=== PATIENT | female | born 1965 | race Caucasian/White ===

== ENCOUNTER 2024-03-29 17:24 | Observation (INO) | payer OTHER, MEDICAID, SELFPAY ==
[2024-03-29] VITALS (14 sets, daily range): BP systolic 103–146; BP diastolic 60–78; PULSE 91–108; RESP 16–24; TEMP 36.6; O2SAT 92–99; BMI 20.7
--- NOTE | 2024-03-29 17:39 | DI.RAD.S_ITS ---
PROCEDURE: XR CHEST 1V INDICATIONS: Shortness of breath TECHNIQUE: One view of the chest was acquired. COMPARISON: None. FINDINGS: Surgical changes and devices: None. Lungs and pleura: Lungs are clear. No pleural effusions or pneumothorax. Mediastinum: Mediastinal contours appear normal. Heart size is normal. Bones and chest wall: No suspicious bony lesions. Overlying soft tissues appear unremarkable. Bones are osteopenic. IMPRESSION: No acute cardiopulmonary abnormality is seen. Approved by: Jaime Cadena M.D. on 03/29/2024 at 18:48
--- NOTE | 2024-03-29 17:43 | EKG_ITS ---
[facility] [address] [place] [address] Test Date: 2024-03-29 Pat Name: Sue Roy Department: [facility] Room: Gender: Female [employer]: : 1965 Requested By: Order Number: [id number] Reading MD: Rafa Hankins Measurements Intervals [place] Rate: 105 P: 83 AR: 130 QRS: 52 QRSD: 72 T: -41 QT: 348 QTc: 459 Interpretive Statements Sinus tachycardia with premature supraventricular complexes Nonspecific ST and T wave abnormality Electronically Signed On 03-30-2024 13:15:40 PDT by Rafa Hankins
[2024-03-29 17:55] LABS: Add Manual Diff / Slide Review NO; Basophils Absolute Auto 100 /uL (0-100); Eosinophils Absolute Auto 100 /uL (0-450); Eosinophils Percent Auto 0.9 % (2-4); Hemoglobin 9.4 g/dL (12.0-16.0); Lymphocytes Absolute Auto 1800 /uL (1100-4500); Lymphocytes Percent Auto 22.4 % (25-40); Mean Corpuscular HGB Conc 32.3 % (30-36); Mean Corpuscular Hemoglobin 36.1 PG (26-34); Mean Corpuscular Volume 111.6 fL (80-100); Monocytes Absolute Auto 600 /uL (0-900); Monocytes Percent Auto 7.4 % (3-14); Neutrophils Absolute Auto 5400 /uL (1500-7000); Neutrophils Percent Auto 68.3 % (50-75); Platelet Count 417 X10^3/uL (150-400); Red Cell Distribution Width 16.3 % (11.6-14.8); White Blood Cell Count 7.9 X10^3/uL (4.5-11.0)
[2024-03-29 17:57] LABS: INR 1.1 (0.9-1.3); Prothrombin Time 12.7 SECONDS (9.4-12.5)
[2024-03-29 18:03] LABS: Alanine Aminotransferase 32 IU/L (<35); Albumin 2.8 g/dL (3.5-5.0); Albumin Globulin Ratio 1.1 (1.0-2.8); Alkaline Phosphatase 222 U/L (38-126); Aspartate Aminotransferase 133 IU/L (14-36); BUN Creatinine Ratio 13.3 (6-22); Bilirubin Total 0.7 mg/dL (0.2-1.3); Blood Urea Nitrogen 6 mg/dL (7-17); Calcium 8.5 mg/dL (8.4-10.2); Carbon Dioxide 19 mmol/L (22-32); Chloride 105 mmol/L (98-107); Estimated Glomerular Filt Rate > 60 mL/min (>60); Globulin 2.6 g/dL (1.7-4.1); Glucose 99 mg/dL (70-100); HEMOLYSIS < 15 (0-50); Sodium 133 mmol/L (137-145); Total Protein 5.4 g/dL (6.3-8.2)
[2024-03-29 18:08] LABS: Macrocytosis 1+
[2024-03-29 18:16] LABS: NT-proBNP (BNP-Adult 18+) 270 pg/mL (<125); Troponin I < 0.012 ng/mL (0.01-0.034)
[2024-03-29] MEDS: ALBUTEROL/IPRATROPIUM 3 ML AMPUL INH (18:31)
[2024-03-29 19:37] LABS: Lactate (Lactic Acid) 3.2 mmol/L (0.7-2.1)
[2024-03-29 20:57] LABS: Reflexed Lactate in 2 Hours Y
--- NOTE | 2024-03-29 21:05 | ED.GENADULT ---
HPI - General Adult General Chief complaint: Shortness of Breath/Dyspnea Stated complaint: dizzy, short of breath, hard time walking Time Seen by Provider: 03/29/24 18:01 Source: patient Mode of arrival: Ambulatory History of Present Illness HPI narrative: 58-year-old woman with a history of alcohol use disorder presents today complaining of shortness of breath, dizziness, increasing abdominal pain and swelling states she is gained 12 lb recently. Patient was seen at [facility] emergency department on March 19 after fall down 4 stairs related to her alcohol use. Imaging of the head and C-spine at that time were unremarkable. She did have a scalp laceration that was repaired. Blood work was not done at that time. Patient states that she has finally been able to schedule an appointment with the primary care physician on April 11. She has not seen a primary care physician over the last number of years. She states that she does smoke tobacco, does drink alcohol does not have withdrawal symptoms and has never had withdrawal seizures. Over the last 2-3 weeks due to having increasing abdominal distention and tenderness, left flank pain and lower extremity edema. She has not complaining of fever, cough, chills, vomiting. Has not noticed black or bloody stools Related Data Allergies Allergy/AdvReac Type Severity Reaction Status Date / Time No Known Drug Allergies Allergy Verified 03/29/24 18:35 Review of Systems Review of Systems Narrative: Pertinent positive and negative findings as per HPI Patient History Social History Smoking Status: Current every day smoker Smoking Status: Current every day smoker alcohol intake frequency: 3 or more drinks per day Substance Use Type: does not use Exam Initial Vital Signs Initial Vital Signs: Vital Signs Pulse Rate 104 H 03/29/24 17:32 Blood Pressure 133/72 03/29/24 17:32 General: Frail, chronically ill-appearing in moderate pain able to speak in complete sentences HEENT: Moist mucous membranes, normal sclera with reactive pupils, Neck: No JVD, supple Respiratory: Lungs with scattered wheeze in all lung field no rhonchi. Cardiac: Tachycardic but otherwise Regular rate and rhythm no murmurs no bruits Abdomen: Distended, positive fluid shift, left flank pain. No abrasions or contusions appreciated. Skin: Thin, multiple telangiectasias with palmar erythema Neurologic: Globally weak but otherwise Grossly neurologically intact with no obvious asymmetries or abnormalities Extremities: No trauma, 2+ lower extremity edema extending up to the lower abdomen Psych: Cooperative, appropriate insight and affect Course Orders Ordered: ED Orders 03/29/24 17:37 Complete Blood Count AUTO DIFF Stat Comprehensive Metabolic Panel Stat NT-proBNP (BNP-Adult 18+) Stat Prothrombin Time INR Stat Troponin I Stat 03/29/24 17:39 XR chest 1V Stat EKG-12 Lead Stat Measure peak expiratory flow ONCE RT Consult Eval and Treat NOW 03/29/24 19:15 Lactate (Lactic Acid) Stat 03/29/24 21:18 CT abdomen pelvis w con Stat CT head/brain wo con Stat 03/29/24 21:46 ETOH [Ethanol (ETOH)] Stat Magnesium Stat Procalcitonin Stat 03/29/24 23:00 Urinalysis and Microscopic Stat Urine Culture Stat Hydromorphone HCl (Hydromorphone 0.5 Mg Inj) 0.5 mg IV Q15MIN PRN PRN Reason: Pain, Last Admin: 03/29/24 21:26 Dose: 0.5 mg Documented By: SEVERIANO Discontinued Medications Albuterol/Ipratropium (Albuterol/Ipratropium 3 Ml Ampul) 3 ml INH NOW ONE Stop: 03/29/24 18:30 Last Admin: 03/29/24 18:31 Dose: 3 ml Documented By: ZARA Sodium Chloride (Normal Saline 0.9%) 1,000 mls @ 1,000 mls/hr IV BOLUS ONE Stop: 03/29/24 22:15 Last Infusion: 03/29/24 22:51 Dose: Infused Documented By: Admin: 03/29/24 21:29 Dose: 1,000 mls/hr Documented By: SEVERIANO Thiamine HCl 100 mg/ Sodium (Chloride) 101 mls @ 404 mls/hr IV NOW ONE Stop: 03/29/24 21:17 Last Infusion: 03/29/24 22:08 Dose: Infused Documented By: Infusion: 03/29/24 21:45 Dose: 404 mls/hr Documented By: Infusion: 03/29/24 21:30 Dose: 0 mls/hr Documented By: Admin: 03/29/24 21:29 Dose: 404 mls/hr Documented By: SEVERIANO Vital Signs Vital signs: Vital Signs - 8 hr 03/29/24 17:32 03/29/24 17:32 03/29/24 17:44 Temperature 97.9 F Pulse Rate 104 H 103 H Respiratory Rate 18 Blood Pressure 133/72 133/72 Pulse Oximetry 99 Oxygen Delivery Method Room Air 03/29/24 18:00 03/29/24 18:00 03/29/24 18:30 Temperature Pulse Rate 97 H Respiratory Rate 20 Blood Pressure 112/72 127/78 Pulse Oximetry 98 Oxygen Delivery Method 03/29/24 18:30 03/29/24 19:00 03/29/24 19:00 Temperature Pulse Rate 96 H 108 H Respiratory Rate 17 24 Blood Pressure 125/65 Pulse Oximetry 97 95 Oxygen Delivery Method Room Air 03/29/24 19:30 03/29/24 19:30 03/29/24 20:00 Temperature Pulse Rate 99 H Respiratory Rate 21 Blood Pressure 123/72 122/75 Pulse Oximetry 95 Oxygen Delivery Method 03/29/24 20:00 03/29/24 20:30 03/29/24 20:30 Temperature Pulse Rate 100 H 92 H Respiratory Rate 21 23 Blood Pressure 122/74 Pulse Oximetry 95 95 Oxygen Delivery Method 03/29/24 21:00 03/29/24 21:00 03/29/24 21:42 Temperature Pulse Rate 100 H Respiratory Rate 21 Blood Pressure 103/60 129/66 Pulse Oximetry 95 Oxygen Delivery Method Room Air 03/29/24 21:42 03/29/24 22:00 03/29/24 22:00 Temperature Pulse Rate 102 H 99 H Respiratory Rate 16 19 Blood Pressure 146/61 H Pulse Oximetry 97 97 Oxygen Delivery Method Room Air 03/29/24 22:30 03/29/24 22:30 03/29/24 23:08 Temperature Pulse Rate 94 H Respiratory Rate 18 Blood Pressure 118/68 115/69 Pulse Oximetry 96 Oxygen Delivery Method Room Air 03/29/24 23:08 Temperature Pulse Rate 98 H Respiratory Rate 22 Blood Pressure Pulse Oximetry 95 Oxygen Delivery Method Medical Decision Making Lab Data 03/29/24 17:37 03/29/24 17:37 Labs: Lab Results 03/29/24 03/29/24 03/29/24 Range/Units 17:37 19:15 21:46 WBC 7.9 (4.5-11.0) X10^3/uL RBC 2.60 L (4.0-5.2) X10^6/uL Hgb 9.4 L (12.0-16.0) g/dL Hct 29.0 L (36-46) % MCV 111.6 H (80-100) fL MCH 36.1 H (26-34) PG MCHC 32.3 (30-36) % RDW 16.3 H (11.6-14.8) % Plt Count 417 H (150-400) X10^3/uL Neut % (Auto) 68.3 (50-75) % Lymph % (Auto) 22.4 L (25-40) % [place] % (Auto) 7.4 (3-14) % Eos % (Auto) 0.9 L (2-4) % Baso % (Auto) 1.0 (0-2) % Neut # (Auto) 5400 (3409-2393) /uL Lymph # (Auto) 1800 (5864-5750) /uL [place] # (Auto) 600 (0-900) /uL Eos # (Auto) 100 (0-450) /uL Baso # (Auto) 100 (0-100) /uL RBC Morphology See below Macrocytosis 1+ H PT 12.7 H (9.4-12.5) SECONDS INR 1.1 (0.9-1.3) Sodium 133 L (137-145) mmol/L Potassium 3.0 L (3.4-5.1) mmol/L Chloride 105 (98-107) mmol/L Carbon Dioxide 19 L (22-32) mmol/L BUN 6 L (7-17) mg/dL Creatinine 0.45 L (0.52-1.04) mg/dL Estimated GFR > 60 (>60) mL/min BUN/Creatinine Ratio 13.3 (6-22) Glucose 99 (70-100) mg/dL Lactate 3.2 H 3.3 H (0.7-2.1) mmol/L Calcium 8.5 (8.4-10.2) mg/dL Magnesium 1.5 L (1.6-2.3) mg/dL Total Bilirubin 0.7 (0.2-1.3) mg/dL AST 133 H (14-36) IU/L ALT 32 (<35) IU/L Alkaline Phosphatase 222 H (38-126) U/L Troponin I < 0.012 (0.01-0.034) ng/mL NT-Pro-B Natriuret Pep 270 H (<125) pg/mL Total Protein 5.4 L (6.3-8.2) g/dL Albumin 2.8 L (3.5-5.0) g/dL Globulin 2.6 (1.7-4.1) g/dL Albumin/Globulin Ratio 1.1 (1.0-2.8) Procalcitonin 0.266 (<0.5) ng/mL Urine Color Urine Appearance Urine pH (4.5-8.0) Ur Specific [place] (1.000-1.035) Urine Protein (Negative) Urine Glucose (UA) (Negative) g/dL Urine Ketones (NEGATIVE) Urine Occult Blood (Negative) Urine Nitrate (Negative) Urine Bilirubin (NEGATIVE) Urine Urobilinogen (0.2) E.U./dL Ur Leukocyte Esterase (NEGATIVE) Urine RBC (0-5/HPF) Urine WBC (0-5/HPF) Ur Squamous Epith Cells (0-5/HPF) Urine Bacteria (None) Ur Culture Indicated? Vol Urine Centrifuged Ethyl Alcohol 25 H ( - 10) mg/dL 03/29/24 Range/Units 23:00 WBC (4.5-11.0) X10^3/uL RBC (4.0-5.2) X10^6/uL Hgb (12.0-16.0) g/dL Hct (36-46) % MCV (80-100) fL MCH (26-34) PG MCHC (30-36) % RDW (11.6-14.8) % Plt Count (150-400) X10^3/uL Neut % (Auto) (50-75) % Lymph % (Auto) (25-40) % [place] % (Auto) (3-14) % Eos % (Auto) (2-4) % Baso % (Auto) (0-2) % Neut # (Auto) (7058-3437) /uL Lymph # (Auto) (9903-5363) /uL [place] # (Auto) (0-900) /uL Eos # (Auto) (0-450) /uL Baso # (Auto) (0-100) /uL RBC Morphology Macrocytosis PT (9.4-12.5) SECONDS INR (0.9-1.3) Sodium (137-145) mmol/L Potassium (3.4-5.1) mmol/L Chloride (98-107) mmol/L Carbon Dioxide (22-32) mmol/L BUN (7-17) mg/dL Creatinine (0.52-1.04) mg/dL Estimated GFR (>60) mL/min BUN/Creatinine Ratio (6-22) Glucose (70-100) mg/dL Lactate (0.7-2.1) mmol/L Calcium (8.4-10.2) mg/dL Magnesium (1.6-2.3) mg/dL Total Bilirubin (0.2-1.3) mg/dL AST (14-36) IU/L ALT (<35) IU/L Alkaline Phosphatase (38-126) U/L Troponin I (0.01-0.034) ng/mL NT-Pro-B Natriuret Pep (<125) pg/mL Total Protein (6.3-8.2) g/dL Albumin (3.5-5.0) g/dL Globulin (1.7-4.1) g/dL Albumin/Globulin Ratio (1.0-2.8) Procalcitonin (<0.5) ng/mL Urine Color Yellow Urine Appearance Cloudy Urine pH 7.0 (4.5-8.0) Ur Specific [place] 1.010 (1.000-1.035) Urine Protein Trace H (Negative) Urine Glucose (UA) Negative (Negative) g/dL Urine Ketones Negative (NEGATIVE) Urine Occult Blood Negative (Negative) Urine Nitrate Negative (Negative) Urine Bilirubin Negative (NEGATIVE) Urine Urobilinogen 4.0 H (0.2) E.U./dL Ur Leukocyte Esterase 1+ H (NEGATIVE) Urine RBC None seen (0-5/HPF) Urine WBC 5-10/hpf H (0-5/HPF) Ur Squamous Epith Cells 1-5 /hpf (0-5/HPF) Urine Bacteria Many (>30) H (None) Ur Culture Indicated? Specimen cultured Vol Urine Centrifuged 10ml (spun) Ethyl Alcohol ( - 10) mg/dL Imaging Data CT scan - abdomen/pelvis: Radiologist's Impression: PROCEDURE: CT ABDOMEN PELVIS W CON INDICATIONS: anasarca, Left flank pain TECHNIQUE: After the administration of intravenous contrast, axial sections acquired from the lung bases to the pubic symphysis. Coronal and sagittal reformats were performed. For radiation dose reduction, the following was used: automated exposure control, adjustment of mA and/or kV according to patient size. COMPARISON: None. FINDINGS: Image quality: Diagnostic Lower chest: Small right pleural effusion. Subjacent atelectasis. Other areas of atelectasis/scarring also present. Mild distal esophageal wall thickening, nonspecific. Coronary calcifications. This appears premature for age. Liver: Hepatic steatosis. Borderline hepatomegaly at 19 cm Subcentimeter lesions are too small to characterize, usually cysts Gallbladder and biliary system: Mildly distended gallbladder without radiopaque gallstones. Borderline ectatic CBD at 6 to 7 mm Pancreas: No ductal dilation Spleen: Nonenlarged Adrenals: No discrete nodule Kidneys: No solid mass or hydronephrosis Vessels and lymph nodes: The main portal vein appears patent. No abdominal aortic aneurysm. There are atherosclerotic calcifications. No pathologic lymph nodes by size criteria Bowel and peritoneum: No evidence of small bowel obstruction. Moderate ascites is present. Colonic diverticula. Nondilated appendix. Body wall: Moderate diffuse anasarca Pelvis: There are pelvic clips. The uterus is absent. Bladder is unremarkable on limited CT evaluation Bones: Mild degenerative changes. No acute or suspicious osseous finding. Nonacute appearing right rib fractures. Age-indeterminate height loss of T12, less than 50%. IMPRESSION: Moderate ascites. Hepatomegaly and steatosis. Steatohepatitis is possible. No obstructing calcified stone or hydronephrosis. Moderate diffuse anasarca. Small right pleural effusion. Other findings above. Dictated by: Nirmal Izaguirre M.D. on 03/29/2024 at 22:08 MDM Narrative Medical decision making narrative: CC: Shortness of breath abdominal distention Complicating co-morbidities: Alcohol use disorder, increasing lower extremity edema that now is anasarca on clinical exam, no primary care but does have an appointment scheduled to establish care April 11 Data collected from: patient Social determinants of health that may influence the patients condition: Alcohol use disorder, difficulty accessing medical care Medical records reviewed: Notes from her March 19 ER visit from [facility] emergency department are summarized in the HPI Differential considered: Anasarca, cirrhosis, hepatorenal syndrome, retroperitoneal bleed with significant anemia, COPD exacerbation, infection Exam documented above, pertinent findings include: Frail and chronically ill-appearing. Multiple sequelae of chronic alcohol use and does smell of alcohol. Mildly distended abdomen with slight fluid shift. Unable to palpate liver edge or spleen edge due to ascites. No contusions to the flanks but she is tender in the left flank. She has anasarca to approximately the umbilicus. Lab Test results independently reviewed as above. Pertinent findings: CBC: Anemia with hemoglobin at 9.4 and hematocrit at 29. No prior blood work for comparison. MCV is elevated at 111 consistent with her history of alcohol use disorder. Platelet count is slightly elevated at 417. Chemistries show mild hyponatremia at 1:33 a.m., low potassium at 3.0. Bilirubin ALT are within normal limits. AST is slightly elevated at 133 and alkaline phosphatase is elevated at 222. Troponin is undetectable ProBNP is minimally Elevated to 70 protein and albumin are both low Lactic acid is elevated at 3.2, repeat continues to be elevated. There is no evidence of infection I do not believe that this is sepsis, I do believe this is 3rd spacing with intravascular depletion Independently reviewed EKG: EKG shows sinus tachycardia, nonspecific STT wave changes Imaging studies independently reviewed: Chest x-ray is unremarkable CT of the abdomen and pelvis shows ascites with anasarca old T12 compression fracture non acute right rib fractures. No other specific findings Treatments: Fluid, Dilaudid, thiamine, IV magnesium, IV Lasix Re-evaluations: Discussed options and reviewed CT findings with the patient. Recommended hospitalization to help with fluid mobilization as well as any alcohol withdrawal symptoms she might have. Discussed with her my concern that she is developing ascites from cirrhosis secondary to her alcohol use. She is quite motivated to stop her alcohol use. We will review findings with the hospitalist service Discussion: 58-year-old woman with a history of alcohol use disorder based on clinical presentation likely developing cirrhosis with ascites and anasarca. Intravascularly dry and extra vascularly volume overloaded. Recommended hospitalization for help with fluid mobilization, electrolyte and thiamine replacement as well as any help with alcohol withdrawal symptoms as they arrive. She currently is not showing signs of significant alcohol withdrawal. Care is discussed with the hospitalist service and patient will be admitted Discharge Plan Departure Patient Disposition: Admitted As Inpatient Clinical Impression: Anasarca, Acute hypokalemia, Alcohol use disorder, COPD (chronic obstructive pulmonary disease), Tobacco abuse Abdominal ascites Qualifiers: Ascites type: due to alcoholic cirrhosis Qualified Code(s): K70.31 - Alcoholic cirrhosis of liver with ascites Anemia Qualifiers: Anemia type: other cause
--- NOTE | 2024-03-29 21:18 | DI.CT.S_ITS ---
PROCEDURE: CT HEAD/BRAIN WO CON INDICATIONS: falling, dizzy, alcohol use disorder TECHNIQUE: Noncontrast 4.5 mm thick angled axial sections acquired from the foramen magnum to the vertex, with coronal and sagittal reformats. For radiation dose reduction, the following was used: automated exposure control, adjustment of mA and/or kV according to patient size. COMPARISON: None. FINDINGS: Image quality: Diagnostic CSF spaces: Basal cisterns are patent. Lateral ventricles are symmetric. Volume: Vascular calcifications. Periventricular white matter disease is commonly seen with chronic microangiopathy. Volume loss is present. These findings are [id number] Brain: No acute hemorrhage or gross loss of ba-white differentiation Craniofacial structures: Partially seen moderate fluid in the left maxillary sinus. IMPRESSION: No acute intracranial hemorrhage. No gross loss of ba-white differentiation. Background chronic appearing volume loss and likely microvascular white matter disease. If there is high concern for parenchymal pathology, consider further evaluation with MRI. Moderate fluid in the left maxillary sinus. Dictated by: Nirmal Izaguirre M.D. on 03/29/2024 at 22:06 Approved by: Nirmal Izaguirre M.D. on 03/29/2024 at 22:08
--- NOTE | 2024-03-29 21:18 | DI.CT.S_ITS ---
PROCEDURE: CT ABDOMEN PELVIS W CON INDICATIONS: anasarca, Left flank pain TECHNIQUE: After the administration of intravenous contrast, axial sections acquired from the lung bases to the pubic symphysis. Coronal and sagittal reformats were performed. For radiation dose reduction, the following was used: automated exposure control, adjustment of mA and/or kV according to patient size. COMPARISON: None. FINDINGS: Image quality: Diagnostic Lower chest: Small right pleural effusion. Subjacent atelectasis. Other areas of atelectasis/scarring also present. Mild distal esophageal wall thickening, nonspecific. Coronary calcifications. This appears premature for age. Liver: Hepatic steatosis. Borderline hepatomegaly at 19 cm Subcentimeter lesions are too small to characterize, usually cysts Gallbladder and biliary system: Mildly distended gallbladder without radiopaque gallstones. Borderline ectatic CBD at 6 to 7 mm Pancreas: No ductal dilation Spleen: Nonenlarged Adrenals: No discrete nodule Kidneys: No solid mass or hydronephrosis Vessels and lymph nodes: The main portal vein appears patent. No abdominal aortic aneurysm. There are atherosclerotic calcifications. No pathologic lymph nodes by size criteria Bowel and peritoneum: No evidence of small bowel obstruction. Moderate ascites is present. Colonic diverticula. Nondilated appendix. Body wall: Moderate diffuse anasarca Pelvis: There are pelvic clips. The uterus is absent. Bladder is unremarkable on limited CT evaluation Bones: Mild degenerative changes. No acute or suspicious osseous finding. Nonacute appearing right rib fractures. Age-indeterminate height loss of T12, less than 50%. IMPRESSION: Moderate ascites. Hepatomegaly and steatosis. Steatohepatitis is possible. No obstructing calcified stone or hydronephrosis. Moderate diffuse anasarca. Small right pleural effusion. Other findings above. Dictated by: Nirmal Izaguirre M.D. on 03/29/2024 at 22:08 Approved by: Nirmal Izaguirre M.D. on 03/29/2024 at 22:12
[2024-03-29] MEDS: HYDROMORPHONE 0.5 MG INJ IV (21:26)
[2024-03-29] MEDS: THIAMINE 100 MG in SODIUM CHLORIDE 0.9% 100 ML 404 MG IV (21:29)
[2024-03-29] MEDS: SODIUM CHLORIDE 0.9% 1,000 ML 1000 ML IV (21:29)
[2024-03-29 22:09] LABS: Ethanol (ETOH) 25 mg/dL; Lactate 2HR (Lactic Acid Rflx) 3.3 mmol/L (0.7-2.1); Magnesium 1.5 mg/dL (1.6-2.3)
[2024-03-29 22:27] LABS: Procalcitonin 0.266 ng/mL (<0.5)
[2024-03-29 23:11] LABS: Appearance Urine UA CLOUDY; Bilirubin Urine UA NEGATIVE (NEGATIVE); Color Urine UA YELLOW; Glucose Urine UA NEGATIVE (Negative); Ketones Urine UA NEGATIVE (NEGATIVE); Leukocyte Esterase Urine UA 1+ (NEGATIVE); Nitrite Urine UA NEGATIVE (Negative); Occult Blood Urine UA NEGATIVE (Negative); Protein Urine UA TRACE (Negative)
[2024-03-29 23:19] LABS: Urine Volume 10mL (spun)
[2024-03-29 23:20] LABS: Bacteria Urine Many (>30)
[2024-03-29 23:21] LABS: RBC Urine None Seen (0-5/HPF); Squamous Epithelial Cell Urine 1-5 /HPF (0-5/HPF); WBC Urine 5-10/HPF (0-5/HPF)
[2024-03-29 23:23] LABS: Culture Indicated Urine Specimen Cultured
[2024-03-29] MEDS: POTASSIUM CHLORIDE 20 MEQ TAB 40 MEQ PO (23:40)
[2024-03-29] MEDS: FUROSEMIDE 40 MG/4 ML VIAL IV (23:43)
[2024-03-29] MEDS: POTASSIUM CHLORIDE IN WATER 10 MEQ/100 ML PIGGYBACK 100 MEQ IV (23:46)
[2024-03-29] MEDS: MAGNESIUM SULFATE 2 GM/50 ML PIGGYBACK IV (23:46)
[2024-03-30] VITALS (56 sets, daily range): BP systolic 92–131; BP diastolic 53–81; PULSE 75–104; RESP 13–41; TEMP 36.2; O2SAT 90–100; BMI 20.7
--- NOTE | 2024-03-30 00:13 | PC.NURSE ---
pt aao x 3 lying on stretcher medicated as ordered, pure wick placed no c/o at this time, , pt noted with dyspnea on minimal exertion noted, pt repositioned in bed call light in reach
[2024-03-30] MEDS: POTASSIUM CHLORIDE IN WATER 10 MEQ/100 ML PIGGYBACK 100 MEQ IV ×3 (00:41→03:02)
--- NOTE | 2024-03-30 04:21 | P.HP_ITS ---
History of Present Illness History of Present Illness Date Patient Seen: 03/30/24 Chief complaint: dizzy, short of breath, hard time walking Narrative: 58 y/o with PMH of alcoholism, smoking, not seen by physician in years, who had a fall 10 days ago, was seen in the ED and discharged home, presented with worsening generalized weakness, shortness of breath, abdominal distension. Workup suggestive of fatty liver, cirrhosis, anasarca, ascites, atelectasis. she was able to set up an appointment with new PCP on 04/11 but couldn't wait due to progressive symptoms. Chemistries show mild hyponatremia at 1:33 a.m., low potassium at 3.0. Mg of 1.5, Bilirubin ALT are within normal limits. AST is slightly elevated at 133 and alkaline phosphatase is elevated at 222. Chest x- ray shows small Rt pleural effusion. CT of the abdomen and pelvis shows ascites with anasarca old T12 compression fracture non acute right rib fractures. [facility] Social History household members: friend(s) Smoking Status: Current every day smoker Meds Home Medications and Allergies Allergies Allergy/AdvReac Type Severity Reaction Status Date / Time No Known Drug Allergies Allergy Verified 03/29/24 18:35 Review of Systems Constitutional Comments: progressive generalized weakness no fever or chills 12 lbs weight gain in last month Cardiovascular Comments: w/o chest pain or palpitations Respiratory Comments: progressive shortness of breath w/o cough Gastrointestinal Comments: progressive abdominal distension w/o abdominal pain or tenderness w/o vomiting / constipation / diarrhea / bloody or dark stool Genitourinary Comments: w/o complaints Musculoskeletal Comments: w/o myalgia Psychiatric Comments: depressed Exam Vital Signs (past 8 hours): - 03/29/24 20:30 03/29/24 20:30 03/29/24 21:00 Pulse Rate 92 H 100 H Respiratory Rate 23 21 Blood Pressure 122/74 Pulse Oximetry 95 95 Oxygen Delivery Method Room Air 03/29/24 21:00 03/29/24 21:42 03/29/24 21:42 Pulse Rate 102 H Respiratory Rate 16 Blood Pressure 103/60 129/66 Pulse Oximetry 97 Oxygen Delivery Method Room Air 03/29/24 22:00 03/29/24 22:00 03/29/24 22:30 Pulse Rate 99 H Respiratory Rate 19 Blood Pressure 146/61 H 118/68 Pulse Oximetry 97 Oxygen Delivery Method 03/29/24 22:30 03/29/24 23:08 03/29/24 23:08 Pulse Rate 94 H 98 H Respiratory Rate 18 22 Blood Pressure 115/69 Pulse Oximetry 96 95 Oxygen Delivery Method Room Air 03/29/24 23:30 03/29/24 23:30 03/30/24 00:00 Pulse Rate 91 H 104 H Respiratory Rate 18 20 Blood Pressure 106/65 Pulse Oximetry 92 95 Oxygen Delivery Method 03/30/24 00:00 03/30/24 00:30 03/30/24 00:30 Pulse Rate 93 H Respiratory Rate 21 Blood Pressure 119/81 95/53 L Pulse Oximetry 94 Oxygen Delivery Method 03/30/24 01:00 03/30/24 01:00 03/30/24 02:03 Pulse Rate 94 H Respiratory Rate 21 Blood Pressure 103/63 Pulse Oximetry 93 Oxygen Delivery Method Room Air Oxygen Delivery Method Room Air Const Other: in no distress, appears ill, tired HENMT Other: normocephalic recently repaired scalp laceration with GLF Eyes Other: w/o scleral icterus Neck Other: supple Resp Other: shallow respirations, tachypnea Cardio Other: regular borderline tachycardia GI Other: large ascites, w/o palpatory tenderness Skin Other: not jaundiced Neuro Other: w/o focal deficits Extrem Other: swollen legs Psych Other: flat affect, depressed mood, lucid, oriented Objective ECG Impression: Sinus tachycardia, APCs, non-specific ST/T changes Labs 03/29/24 17:37 03/29/24 17:37 Labs: Laboratory Results - last 24 hr 03/29/24 03/29/24 03/29/24 17:37 19:15 21:46 WBC 7.9 RBC 2.60 L Hgb 9.4 L Hct 29.0 L MCV 111.6 H MCH 36.1 H MCHC 32.3 RDW 16.3 H Plt Count 417 H Neut % (Auto) 68.3 Lymph % (Auto) 22.4 L [place] % (Auto) 7.4 Eos % (Auto) 0.9 L Baso % (Auto) 1.0 Neut # (Auto) 5400 Lymph # (Auto) 1800 [place] # (Auto) 600 Eos # (Auto) 100 Baso # (Auto) 100 RBC Morphology See below Macrocytosis 1+ H PT 12.7 H INR 1.1 Sodium 133 L Potassium 3.0 L Chloride 105 Carbon Dioxide 19 L BUN 6 L Creatinine 0.45 L Estimated GFR > 60 BUN/Creatinine Ratio 13.3 Glucose 99 Lactate 3.2 H 3.3 H Calcium 8.5 Magnesium 1.5 L Total Bilirubin 0.7 AST 133 H ALT 32 Alkaline Phosphatase 222 H Troponin I < 0.012 NT-Pro-B Natriuret Pep 270 H Total Protein 5.4 L Albumin 2.8 L Globulin 2.6 Albumin/Globulin Ratio 1.1 Procalcitonin 0.266 Urine Color Urine Appearance Urine pH Ur Specific [place] Urine Protein Urine Glucose (UA) Urine Ketones Urine Occult Blood Urine Nitrate Urine Bilirubin Urine Urobilinogen Ur Leukocyte Esterase Urine RBC Urine WBC Ur Squamous Epith Cells Urine Bacteria Ur Culture Indicated? Vol Urine Centrifuged Ethyl Alcohol 25 H 03/29/24 23:00 WBC RBC Hgb Hct MCV MCH MCHC RDW Plt Count Neut % (Auto) Lymph % (Auto) [place] % (Auto) Eos % (Auto) Baso % (Auto) Neut # (Auto) Lymph # (Auto) [place] # (Auto) Eos # (Auto) Baso # (Auto) RBC Morphology Macrocytosis PT INR Sodium Potassium Chloride Carbon Dioxide BUN Creatinine Estimated GFR BUN/Creatinine Ratio Glucose Lactate Calcium Magnesium Total Bilirubin AST ALT Alkaline Phosphatase Troponin I NT-Pro-B Natriuret Pep Total Protein Albumin Globulin Albumin/Globulin Ratio Procalcitonin Urine Color Yellow Urine Appearance Cloudy Urine pH 7.0 Ur Specific [place] 1.010 Urine Protein Trace H Urine Glucose (UA) Negative Urine Ketones Negative Urine Occult Blood Negative Urine Nitrate Negative Urine Bilirubin Negative Urine Urobilinogen 4.0 H Ur Leukocyte Esterase 1+ H Urine RBC None seen Urine WBC 5-10/hpf H Ur Squamous Epith Cells 1-5 /hpf Urine Bacteria Many (>30) H Ur Culture Indicated? Specimen cultured Vol Urine Centrifuged 10ml (spun) Ethyl Alcohol Assessment & Plan Assessment and plan (1) Liver cirrhosis: Status: Acute (2) Alcohol use disorder: Status: Acute (3) Abdominal ascites: Qualifiers: Ascites type: due to alcoholic cirrhosis Qualified Code(s): K70.31 - Alcoholic cirrhosis of liver with ascites Status: Acute (4) Anasarca: Status: Acute (5) Acute hypokalemia: Status: Acute (6) Anemia: Qualifiers: Anemia type: other cause Status: Acute (7) Tobacco abuse: Status: Acute Assessment & Plan narrative: Alcoholism / Liver Cirrhosis - she never went through DTs, placed in telemetry, prn Lorazepam - small amount of alcohol on admission - not tremulous or anxious, she is considering quitting the drinking - B1, FA - lipid panel, GI referral Ascites / Anasarca / Atelectasis - portal HTN - w/o Hx of hematemesis or GI bleed - needs EGD, has distal esophageal thickening, it can be done outpatient (varices, stricture?) - lasix, Is/Os, electrolyte monitoring, albumin prn - with worsening renal function and/or orthostasis - lipid panel, echocardiogram - EKG with non-specific changes, mildly elevated BNP, coronary calcifications on CT Hypokalemia / Hypomagnesemia - replaced, monitored Macrocytic Anemia - B12, FA level pending - FA supplemented Smoker - nicotine patch and albuterol prn DVT prophylaxis - SCDs GI prophylaxis - PPI Time-Based Coding :: [TOTAL MINUTES] spent with patient and on the chart (including review of chart, obtaining history, exam, reviewing outside data, placing orders, documenting exam and treatment plan, and counseling patient) on [DATE].
[2024-03-30 04:28] LABS: MRSA (Nasal) PCR NOT DETECTED (Not Detect)
--- NOTE | 2024-03-30 05:15 | DI.ECHO.S_ITS ---
[facility] : : [id number] : [place] : : [id number] : : Phone: [phone] Echocardiogram Report + :Name: LORENA HARGROVE Study Date: 03/30/2024 Height: 61 in : :[facility] ReadingLocation: Weight: 110 lb : : Gender: Female BSA: 1.5 m2 : :: 1965 Age: 58 yrs BP: 126/70 mmHg: :Reason For Study: SUSPECTED CONGESTIVE HEART FAILURE : :Ordering Physician: CLEMENTE : :EUGENE SHAW Performed By: Kemi Mariscal : :Referring: EUGENE MEEKS : + Interpretation Summary The left ventricle is normal in size and wall thickness. The left ventricle is hyperdynamic. The ejection fraction is estimated to be 70-75%. No significant LV outflow tract obstruction. The right ventricle is normal in size and function There is mild tricuspid regurgitation. Right ventricular systolic pressure is estimated to be 21 mmHg plus the clinically estimated CVP which cannot be estimated on this exam. Procedure: A two-dimensional transthoracic echocardiogram with color flow and Doppler was performed. The study quality was technically adequate. There is no prior echocardiogram noted for this patient. The patient was in sinus rhythm with heart rates between 84-97 bpm during the exam. Left Ventricle: The left ventricle is normal in size and wall thickness. There is no echo evidence for significant left ventricular outflow tract obstruction. There is no thrombus. The ejection fraction is estimated to be 70-75%. The left ventricle is hyperdynamic. There are no focal wall motion abnormalities. Diastolic parameters suggest a relaxation abnormality of the left ventricle, consistent with probable normal filling pressures. Right Ventricle: The right ventricle is normal in size and function. Atria: The left atrial size is normal. Right atrial size is normal. There is no Doppler evidence for an interatrial shunt. Mitral Valve: The mitral valve is normal in structure and function. There is trace mitral regurgitation. Aortic Valve: The aortic valve is trileaflet. The aortic valve opens well. There is no aortic valve stenosis. There is trace aortic regurgitation. Tricuspid Valve: The tricuspid valve is normal. There is mild tricuspid regurgitation. Right ventricular systolic pressure is estimated to be 21 mmHg plus the clinically estimated CVP which cannot be estimated on this exam. Pulmonic Valve: The pulmonic valve is not well visualized. There is no pulmonic valvular regurgitation. Great Vessels: The aortic root is normal size. The dimensions of the ascending aorta are normal. The inferior vena cava was not well visualized. Pericardium/ Pleura There is no pericardial effusion. There is an anterior echo-free space consistent with a fat pad. There is no pleural effusion. MMode/2D Measurements & Calculations LVIDd: 4.0 cm LVOT diam: 2.0 cm LVIDs: 2.6 cm Ao root diam: 2.9 cm FS: 36.3 % asc Aorta Diam: 2.9 cm IVSd: 0.69 cm LVPWd: 0.73 cm LV galvez. diameter/BSA (cm/m^2): 2.8 LV sys. diameter/BSA (cm/m^2): 1.8 LA A2 area: 13.1 cm2 RA long axis: 4.2 cm LA A4 area: 12.0 cm2 RA area: 11.0 cm2 LA length (vol): 4.7 cm RA vol: 24.4 ml LA vol: 28.6 ml RA : 16.7 ml/m2 LA vol index: 19.5 ml/m2 RVD1 (basal): 2.8 cm RVD2 (mid): 2.3 cm TAPSE: 1.9 cm Doppler Measurements & Calculations Ao V2 max: 133.1 cm/sec LVOT Max Hermann: 113.4 cm/sec Ao V2 mean: 96.9 cm/sec LV V1 max P.1 mmHg Ao max P.1 mmHg LV V1 VTI: 22.6 cm Ao mean P.1 mmHg CYRUS(I,D): 2.9 cm2 Ao V2 VTI: 24.7 cm CYRUS(V,D): 2.7 cm2 sev ratio: 0.92 CYRUS indexed to BSA (cm^2/m^2): 2.0 MV E max hermann: 74.6 cm/sec TR max hermann: 230.2 cm/sec MV A max hermann: 90.6 cm/sec TR max P.2 mmHg MV E/A: 0.82 PA V2 max: 100.4 cm/sec Med Peak E' Hermann: 8.5 cm/sec PA V2 mean: 70.0 cm/sec E/E' med: 8.7 PA mean P.2 mmHg Lat Peak E' Hermann: 14.7 cm/sec PA pr(Accel): 41.3 mmHg E/E' lat: 5.1 E/e' average: 6.9 MV dec time: 0.17 sec SV(LVOT): 71.8 ml Reading Physician:09:01 AM
[2024-03-30] MEDS: PANTOPRAZOLE DR 20 MG TABLET PO (06:31)
[2024-03-30 08:20] LABS: Add Manual Diff / Slide Review NO; Basophils Absolute Auto 100 /uL (0-100); Basophils Percent Auto 1.8 % (0-2); Eosinophils Absolute Auto 0 /uL (0-450); Eosinophils Percent Auto 0.5 % (2-4); Hematocrit 26.1 % (36-46); Hemoglobin 8.7 g/dL (12.0-16.0); Lymphocytes Absolute Auto 1100 /uL (1100-4500); Lymphocytes Percent Auto 17.1 % (25-40); Mean Corpuscular HGB Conc 33.3 % (30-36); Mean Corpuscular Hemoglobin 36.7 PG (26-34); Mean Corpuscular Volume 110.4 fL (80-100); Monocytes Absolute Auto 500 /uL (0-900); Monocytes Percent Auto 7.9 % (3-14); Neutrophils Absolute Auto 4600 /uL (1500-7000); Neutrophils Percent Auto 72.7 % (50-75); Platelet Count 389 X10^3/uL (150-400); Red Blood Cell Count 2.37 X10^6/uL (4.0-5.2); Red Cell Distribution Width 16.8 % (11.6-14.8); White Blood Cell Count 6.3 X10^3/uL (4.5-11.0)
[2024-03-30 08:28] LABS: INR 1.1 (0.9-1.3); Prothrombin Time 12.6 SECONDS (9.4-12.5)
[2024-03-30 08:30] LABS: PTT Partial Thromboplastin Tim 30 SECONDS (25.1-36.5)
[2024-03-30 08:35] LABS: Alanine Aminotransferase 29 IU/L (<35); Albumin 2.5 g/dL (3.5-5.0); Alkaline Phosphatase 202 U/L (38-126); Aspartate Aminotransferase 119 IU/L (14-36); BUN Creatinine Ratio 11.3 (6-22); Bilirubin Total 0.8 mg/dL (0.2-1.3); Blood Urea Nitrogen 6 mg/dL (7-17); Carbon Dioxide 24 mmol/L (22-32); Chloride 106 mmol/L (98-107); Estimated Glomerular Filt Rate > 60 mL/min (>60); Globulin 2.6 g/dL (1.7-4.1); Glucose 103 mg/dL (70-100); HEMOLYSIS < 15 (0-50); Potassium 4.2 mmol/L (3.4-5.1); Sodium 132 mmol/L (137-145); Total Protein 5.1 g/dL (6.3-8.2)
[2024-03-30] MEDS: PANTOPRAZOLE 40 MG VIAL IV ×2 (08:54→21:02)
[2024-03-30] MEDS: FUROSEMIDE 40 MG TABLET PO (08:54)
[2024-03-30] MEDS: FOLIC ACID 1 MG TABLET PO (08:54)
[2024-03-30] MEDS: THIAMINE 100 MG TABLET PO (08:54)
[2024-03-30 10:18] LABS: Anisocytosis 1+; Macrocytosis 3+; Platelet Estimate Adequate on smear
[2024-03-30 10:19] LABS: Hypochromasia 1+
[2024-03-30] MEDS: LIDOCAINE 1% 20 ML 3 ML SUBCUT (10:36)
[2024-03-30] MEDS: LORazepam 0.5 MG TABLET PO (10:39)
[2024-03-30] MEDS: HYDROMORPHONE 0.5 MG INJ IV ×2 (10:54→14:20)
--- NOTE | 2024-03-30 11:18 | PM.PROC.1 ---
Procedures Date/Time Date of procedure: 03/30/24 Time of procedure: 10:45 Paracentesis Time out performed: Yes Indication: possible spontaneous bacterial peritonitis Procedure: diagnostic paracentesis Location: RLQ Local anesthetic used: lidocaine 1% Amount of anesthesia used (ml): 3 Bedside ultrasound used: yes, Ascites confirmed and location marked Preparation: sterile prep and drape Amount of fluid obtained (ml): 60 Fluid: cloudy (yellow) Size of needle used: 22 Post procedure exam: awake, alert, normal BP, normal HR and normal SpO2 Patient tolerated procedure: well and no complications Complications: none Additional comments: Prior to the procedure formal consent was obtained from the patient after discussion of risks and benefits of the procedure, and allowing the patient to ask any questions. Ultrasound was used to find a suitable pocket, and the site was marked. A time-out was performed. The site was then prepped and draped in usual sterile fashion, and a 22 gauge needle was inserted with return of cloudy yellow fluid into a 60 cc syringe. A total of approximately 60 mL was obtained for diagnostic purposes. There was no bleeding and the patient tolerated the procedure well. There were no further complications. Fluid was sent to the lab for analysis.
[2024-03-30 12:01] LABS: Body Fluid Tot Nucleated Cells 35 /uL
[2024-03-30 12:02] LABS: Body Fluid Red Blood Cells 158 /uL
[2024-03-30 12:06] LABS: Body Fluid Color YELLOW
[2024-03-30 12:07] LABS: Body Fluid Appearance SLIGHTLY CLOUDY; Body Fluid Clotted? NO CLOTS PRESENT
[2024-03-30 12:29] LABS: Lymphocytes Body Fluid 49 %; Neutrophils Body Fluid 4 %
[2024-03-30 12:30] LABS: MESO/MACRO/MONO Body Fluid 47 %
--- NOTE | 2024-03-30 13:12 | PM.HP.1 ---
History of Present Illness History of Present Illness Date Patient Seen: 03/30/24 Time Patient Seen: 10:00 Chief complaint: dizzy, short of breath, hard time walking Narrative: Per overnight provider. 58 y/o with PMH of alcoholism, smoking, not seen by physician in years, who had a fall 10 days ago, was seen in the ED and discharged home, presented with worsening generalized weakness, shortness of breath, abdominal distension. Workup suggestive of fatty liver, cirrhosis, anasarca, ascites, atelectasis. she was able to set up an appointment with new PCP on 04/11 but couldn't wait due to progressive symptoms. Chemistries show mild hyponatremia at 1:33 a.m., low potassium at 3.0. Mg of 1.5, Bilirubin ALT are within normal limits. AST is slightly elevated at 133 and alkaline phosphatase is elevated at 222. Chest x-ray shows small Rt pleural effusion. CT of the abdomen and pelvis shows ascites with anasarca old T12 compression fracture non acute right rib fractures. Patient also reports ongoing LE edema and dyspnea with abdominal distension over the past two weeks. Denies fever or chills, she does have some urinary frequency but no dysuria. No abdominal pain other than she feels bloated. Bedside ultrasound showed moderate ascites. Performed diagnostic paracentesis to rule out SBP prior to likely therapeutic paracentesis. [facility] Social History household members: other Smoking Status: Current every day smoker Meds Home Medications and Allergies Allergies Allergy/AdvReac Type Severity Reaction Status Date / Time No Known Drug Allergies Allergy Verified 03/29/24 18:35 Review of Systems Review of Systems Narrative: All other systems reviewed with the patient and are negative unless otherwise stated. Exam Vital Signs (past 8 hours): - 03/30/24 05:30 03/30/24 06:00 03/30/24 06:08 Temperature Pulse Rate 85 89 87 Respiratory Rate 26 H 36 H 24 Blood Pressure Pulse Oximetry 97 Oxygen Delivery Method 03/30/24 06:08 03/30/24 06:30 03/30/24 07:00 Temperature Pulse Rate 91 H 97 H Respiratory Rate 18 41 H Blood Pressure 126/70 Pulse Oximetry 96 97 Oxygen Delivery Method 03/30/24 07:30 03/30/24 08:00 03/30/24 08:00 Temperature Pulse Rate 81 82 Respiratory Rate 18 19 Blood Pressure 113/60 Pulse Oximetry 94 94 Oxygen Delivery Method 03/30/24 08:00 03/30/24 08:16 Temperature 97.1 F L Pulse Rate Respiratory Rate Blood Pressure Pulse Oximetry Oxygen Delivery Method Room Air Oxygen Delivery Method Room Air Narrative Exam Narrative: General:? Patient is well developed and well nourished, in no distress at this time. Chest:? Normal AP diameter and contour without kyphoscoliosis, no tachypnea, equal chest rise bilaterally. Lungs:? CTA b/l no wheezing rhonchi or rales. Cardio:?RRR no m/r/g. Abdomen: soft, distended with ascites, non-tender. Umbilical jewelery present. Musculoskeletal:? Muscle strength and tone are equal within normal limits, no deformity. Extremities: 1+ peripheral edema bilaterally. Skin:? Pale,? Warm to touch,dry and intact without rashes, ulcerations or petechiae.? Neuro:? Alert and orientated x3,? sensation to touch intact in all extremities, no gross deficits noted of cranial nerves. Psych:? Patient has a well-kept appearance, appropriate affect, mental status attitude thought context and judgment are appropriate for age. Objective ECG Impression: Sinus tachycardia with premature supraventricular complexes without evidence of acute ischemia. Imaging CT scan - abdomen: My impression: mild ascites. Labs 03/30/24 08:11 03/30/24 08:11 Labs: Laboratory Results - last 24 hr 03/29/24 03/29/24 03/29/24 17:37 19:15 21:46 WBC 7.9 RBC 2.60 L Hgb 9.4 L Hct 29.0 L MCV 111.6 H MCH 36.1 H MCHC 32.3 RDW 16.3 H Plt Count 417 H Neut % (Auto) 68.3 Lymph % (Auto) 22.4 L [place] % (Auto) 7.4 Eos % (Auto) 0.9 L Baso % (Auto) 1.0 Neut # (Auto) 5400 Lymph # (Auto) 1800 [place] # (Auto) 600 Eos # (Auto) 100 Baso # (Auto) 100 Platelet Estimate RBC Morphology See below Hypochromasia Anisocytosis Macrocytosis 1+ H PT 12.7 H INR 1.1 APTT Sodium 133 L Potassium 3.0 L Chloride 105 Carbon Dioxide 19 L BUN 6 L Creatinine 0.45 L Estimated GFR > 60 BUN/Creatinine Ratio 13.3 Glucose 99 Lactate 3.2 H 3.3 H Calcium 8.5 Magnesium 1.5 L Total Bilirubin 0.7 AST 133 H ALT 32 Alkaline Phosphatase 222 H Troponin I < 0.012 NT-Pro-B Natriuret Pep 270 H Total Protein 5.4 L Albumin 2.8 L Globulin 2.6 Albumin/Globulin Ratio 1.1 Procalcitonin 0.266 Urine Color Urine Appearance Urine pH Ur Specific [place] Urine Protein Urine Glucose (UA) Urine Ketones Urine Occult Blood Urine Nitrate Urine Bilirubin Urine Urobilinogen Ur Leukocyte Esterase Urine RBC Urine WBC Ur Squamous Epith Cells Urine Bacteria Ur Culture Indicated? Vol Urine Centrifuged Fluid Color Fluid Appearance Fluid RBC Fld Tot Nucleated Cell Fluid Neutrophils % Fluid Lymphocytes % Fluid [place] % Body Fluid Clot Nasal Screen MRSA (PCR) Ethyl Alcohol 25 H 03/29/24 03/30/24 03/30/24 23:00 03:10 08:11 WBC 6.3 RBC 2.37 L Hgb 8.7 L Hct 26.1 L MCV 110.4 H MCH 36.7 H MCHC 33.3 RDW 16.8 H Plt Count 389 Neut % (Auto) 72.7 Lymph % (Auto) 17.1 L [place] % (Auto) 7.9 Eos % (Auto) 0.5 L Baso % (Auto) 1.8 Neut # (Auto) 4600 Lymph # (Auto) 1100 [place] # (Auto) 500 Eos # (Auto) 0 Baso # (Auto) 100 Platelet Estimate Adequate on smear RBC Morphology See below Hypochromasia 1+ H Anisocytosis 1+ H Macrocytosis 3+ H D PT 12.6 H INR 1.1 APTT 30 Sodium 132 L Potassium 4.2 D Chloride 106 Carbon Dioxide 24 BUN 6 L Creatinine 0.53 Estimated GFR > 60 BUN/Creatinine Ratio 11.3 Glucose 103 H Lactate Calcium 8.0 L Magnesium Total Bilirubin 0.8 AST 119 H ALT 29 Alkaline Phosphatase 202 H Troponin I NT-Pro-B Natriuret Pep Total Protein 5.1 L Albumin 2.5 L Globulin 2.6 Albumin/Globulin Ratio 1.0 Procalcitonin Urine Color Yellow Urine Appearance Cloudy Urine pH 7.0 Ur Specific [place] 1.010 Urine Protein Trace H Urine Glucose (UA) Negative Urine Ketones Negative Urine Occult Blood Negative Urine Nitrate Negative Urine Bilirubin Negative Urine Urobilinogen 4.0 H Ur Leukocyte Esterase 1+ H Urine RBC None seen Urine WBC 5-10/hpf H Ur Squamous Epith Cells 1-5 /hpf Urine Bacteria Many (>30) H Ur Culture Indicated? Specimen cultured Vol Urine Centrifuged 10ml (spun) Fluid Color Fluid Appearance Fluid RBC Fld Tot Nucleated Cell Fluid Neutrophils % Fluid Lymphocytes % Fluid [place] % Body Fluid Clot Nasal Screen MRSA (PCR) Not detected Ethyl Alcohol 03/30/24 11:00 WBC RBC Hgb Hct MCV MCH MCHC RDW Plt Count Neut % (Auto) Lymph % (Auto) [place] % (Auto) Eos % (Auto) Baso % (Auto) Neut # (Auto) Lymph # (Auto) [place] # (Auto) Eos # (Auto) Baso # (Auto) Platelet Estimate RBC Morphology Hypochromasia Anisocytosis Macrocytosis PT INR APTT Sodium Potassium Chloride Carbon Dioxide BUN Creatinine Estimated GFR BUN/Creatinine Ratio Glucose Lactate Calcium Magnesium Total Bilirubin AST ALT Alkaline Phosphatase Troponin I NT-Pro-B Natriuret Pep Total Protein Albumin Globulin Albumin/Globulin Ratio Procalcitonin Urine Color Urine Appearance Urine pH Ur Specific [place] Urine Protein Urine Glucose (UA) Urine Ketones Urine Occult Blood Urine Nitrate Urine Bilirubin Urine Urobilinogen Ur Leukocyte Esterase Urine RBC Urine WBC Ur Squamous Epith Cells Urine Bacteria Ur Culture Indicated? Vol Urine Centrifuged Fluid Color Yellow Fluid Appearance Slightly cloudy Fluid RBC 158 Fld Tot Nucleated Cell 35 Fluid Neutrophils % 4 Fluid Lymphocytes % 49 Fluid [place]/Mac[place] % 47 Body Fluid Clot No clots present Nasal Screen MRSA (PCR) Ethyl Alcohol Assessment & Plan Assessment & Plan narrative: 1. Cirrhosis vs alcohol hepatitis, with ascites - low DF with normal INR at 1.1 and normal bilirubin - will send ascites fluid for further evaluation (currently cell count with 35 nuclear cells, SBP ruled out). Sent for gram stain, culture, Glucose, Total protein, albumin, amylase, and LDH for diagnostic purposes. - likely ascites is leading to her dyspnea - perform therapeutic paracentesis later today now that SBP ruled out. - start diuretic therapy with furosemide and aldactone after paracentesis. 2. EtOH use - [facility] protocol - MVI,folate,thiamine 3. Acute macrocytic anemia - unknown baseline. Likely somewhat chronic with EtOH use. Hg has falled from 9.4 to 8.7 this AM. No evidence of GI bleeding reported. Will continue to trend h/h for now. Start on IV PPI BID in case of GI bleeding leading to presentation with dyspnea. Esophageal thickening noted on admission imaging (CT). - continue to follow h/h. 4. hypomagnesemia - replete today, Mg 1.5 5. possible acute cystitis - patient did develop urinary frequency, UA positive, will start ceftriaxone now that SBP ruled out. Code: Full, surrogate is patient's spouse DVT: low risk I have utilized all available immediate resources to obtain, update, or review the patient's current medications. Dispo: patient admitted under observation status, possible discharge home in 1-2 days depending on Hg trend and improvement in symptoms after paracentesis. Additional history obtained via discussions with the overnight provider, case finisher, and bedside RN. These discussions contributed to the creation of the above assessment and plan. I have reviewed patient's presenting documentation, labs, and imaging personally. Time-Based Coding :: [TOTAL MINUTES] spent with patient and on the chart (including review of chart, obtaining history, exam, reviewing outside data, placing orders, documenting exam and treatment plan, and counseling patient) on [DATE].
[2024-03-30] MEDS: MULTIVITAMIN 1 TABLET 1 TAB PO (13:40)
[2024-03-30] MEDS: cefTRIAXone 1,000 MG in SODIUM CHLORIDE 0.9% 100 ML 200 MG IV (13:40)
--- NOTE | 2024-03-30 14:02 | CM.DANOTE ---
Patient is a 58 yo female who was admitted OBS Status on 03/30/24 for SOB, Cirrhosis, Abd Ascites. Pt has [employer] and [employer] for insurance and she has not had a PCP for the last few years but now has appointment in 2 weeks. EMR was reviewed. Per MD, pt with hx of ETOH and had GLF about 10 days ago and went to the ED and has prior healing rib fx and admitted for thoracentesis and tx of cirrhosis. SW met bedside with pt and explained role and pt confirms that she lives in [place] and rents a room in a home and is mostly independent with ADLs and does not get assist from the people she rents from. Pt does not use DME for ambulation but seems somewhat unsteady/weak and pt does not drive as she states she is legally blind. Pt typically relies on others for transportation and unsure if she has Medicaid transportation but feels this would be very helpful. Pt denies any local family and states its just me and my 2 yo cat. Pt confirms that she has an establish care appointment with new PCP Dr. Tatum Hutchins at [facility] on 04/12/24. SW inquired about pt's ETOH and pt guarded and denies any problems with drinking alcohol. Pt states she only has a drink sometimes with lunch or dinner and is in bed by 8pm each evening and I'm definitely not just drinking and partying all day or night. Pt denies any hx of ETOH tx or counseling support and denies the need for any ETOH resources at this time. Pt requests assist with determining if she has Medicaid Transportation benefits and SW called [facility] [place] and confirmed that pt has Medicaid transportation that could be used at discharge if her roommate cannot transport and for future appointments. Plan: SW to follow closely to determine if any PT eval needed and to update pt on Medicaid transportation and to provide POA brochure and pwk as pt has limited community supports. CATHIE Lino Discharge Planning/Care Management CM Discharge Assessment Start: 03/30/24 13:57 Freq: Status: Active Protocol: Document 03/30/24 13:57 BF (Rec: 03/30/24 14:02 BF [id number]) Discharge Planning Assessment Assigned Heat Treat Supervisor CATHIE Silver DPOA/Assigned Designee Name none Advance Directives? No Advance Directives on File No History Provided By Patient,Medical Record Has Patient been admitted in last 30 No days? Prior Living Arrangements Apartment/Condo Comment Rents a room in a house Household Members other Comment roommates Type of transporation used prior to Relies on Others admit Comment Legally blind Independent with ADL's Yes Is patient alert and oriented? Yes Needs Assistance With Home Chores / Shopping Caregiver for Another No Comment r/o HH Barriers to Discharge No Discharge Plan Home Transportation Arrangement Likely will need Medicaid transport, confirmed she has benefits Additional Comment Pending progress Whiteboard Updated in Patient Room with Yes name and ext. # of Heat Treat Supervisor Review Status In Process Please Provide Date Initial DC 03/30/24 Assessment Was Performed Next Review Type Continued Stay Review
[2024-03-30] MEDS: LORazepam 2 MG/ML INJ 0.5 MG IV (14:19)
--- NOTE | 2024-03-30 15:15 | PM.PROC.1 ---
Procedures Date/Time Date of procedure: 03/30/24 Time of procedure: 15:17 Paracentesis Time out performed: Yes Indication: Ascites Procedure: therapeutic paracentesis Location: LLQ Local anesthetic used: lidocaine 1% Amount of anesthesia used (ml): 3 Bedside ultrasound used: yes, Ascites confirmed and location marked Preparation: sterile prep and drape Amount of fluid obtained (ml): 2,300 Fluid: clear Size of needle used: 16 Post procedure exam: awake, alert, normal BP, normal HR and normal SpO2 Patient tolerated procedure: well and no complications Complications: none Additional comments: Prior to the procedure formal consent was obtained from the patient after discussion of risks and benefits of the procedure, and allowing the patient to ask any questions. Ultrasound was used to find a suitable pocket, and the site was marked. A time-out was performed. The site was then prepped and draped in usual sterile fashion, and a 16 gauge needle was inserted with return of cloudy yellow fluid. A total of approximately 2300 mL was obtained before drainage stopped. There was no bleeding and the patient tolerated the procedure well. There were no further complications.
[2024-03-30] MEDS: ALBUTEROL 2.5 MG/3 ML NEB (ADULT) INH (15:22)
[2024-03-30] MEDS: SENNOSIDES 8.6 MG TABLET 17.2 MG PO (21:02)
[2024-03-30] MEDS: SODIUM CHLORIDE 0.9% FLUSH 10 ML IV (21:03)
[2024-03-31] VITALS (22 sets, daily range): BP systolic 88–99; BP diastolic 56–73; PULSE 88–111; RESP 17–37; O2SAT 88–96
[2024-03-31 05:16] LABS: Labcorp Amylase, Body Fluid 24 U/L (.); Labcorp Glucose, Body Fluid 150 mg/dL (.); Labcorp LDH, Body Fluid 33 IU/L (.); Labcorp Total Prot, Body Fluid 0.7 g/dL (.)
[2024-03-31 06:05] LABS: Labcorp Albumin, Body Fluid 0.5 g/dL (Not Estab.)
[2024-03-31 07:26] LABS: Cholesterol 128 mg/dL (140-199); HDL Cholesterol 31 mg/dL (40-60); LDL Cholesterol Calculated 80 mg/dL (<100); Triglycerides 86 mg/dL (35-150)
[2024-03-31 08:33] LABS: Folate 2.9 ng/mL (2.76-20.0); Vitamin B12 783 pg/mL (239-931)
[2024-03-31] MEDS: OXYCODONE IR 5 MG TABLET 2.5 MG PO (09:18)
[2024-03-31] MEDS: PANTOPRAZOLE 40 MG VIAL IV (09:24)
[2024-03-31] MEDS: SPIRONOLACTONE 25 MG TABLET 50 MG PO (09:24)
[2024-03-31] MEDS: FUROSEMIDE 40 MG TABLET PO (09:24)
[2024-03-31] MEDS: SODIUM CHLORIDE 0.9% FLUSH 10 ML IV (09:25)
[2024-03-31] MEDS: THIAMINE 100 MG TABLET PO (09:26)
[2024-03-31] MEDS: MULTIVITAMIN 1 TABLET 1 TAB PO (09:26)
[2024-03-31] MEDS: FOLIC ACID 1 MG TABLET PO (09:26)
--- NOTE | 2024-03-31 11:22 | PM.DS.1 ---
History of Present Illness History of Present Illness Chief complaint: dizzy, short of breath, hard time walking Narrative: From H&P: 58 y/o with PMH of alcoholism, smoking, not seen by physician in years, who had a fall 10 days ago, was seen in the ED and discharged home, presented with worsening generalized weakness, shortness of breath, abdominal distension. Workup suggestive of fatty liver, cirrhosis, anasarca, ascites, atelectasis. she was able to set up an appointment with new PCP on 04/11 but couldn't wait due to progressive symptoms. Chemistries show mild hyponatremia at 1:33 a.m., low potassium at 3.0. Mg of 1.5, Bilirubin ALT are within normal limits. AST is slightly elevated at 133 and alkaline phosphatase is elevated at 222. Chest x-ray shows small Rt pleural effusion. CT of the abdomen and pelvis shows ascites with anasarca old T12 compression fracture non acute right rib fractures. Patient also reports ongoing LE edema and dyspnea with abdominal distension over the past two weeks. Denies fever or chills, she does have some urinary frequency but no dysuria. No abdominal pain other than she feels bloated. Bedside ultrasound showed moderate ascites. Performed diagnostic paracentesis to rule out SBP prior to likely therapeutic paracentesis. Discharge Providers Provider Date of admission: 03/30/24 00:14 Discharge Date: 03/31/24 Primary care physician: Doctor Alessia MD Consults: NONE. Discharge provider: Yinka Meredith MD Summary Hospital Course Discharge Diagnosis: 1. Cirrhosis vs alcohol hepatitis, with ascites. Present on admission and active. - low DF with normal INR at 1.1 and normal bilirubin - will send ascites fluid for further evaluation (currently cell count with 35 nuclear cells, SBP ruled out). Sent for gram stain, culture, Glucose, Total protein, albumin, amylase, and LDH for diagnostic purposes. - likely ascites is leading to her dyspnea - performed therapeutic paracentesis after SBP ruled out. - start diuretic therapy with furosemide and aldactone after paracentesis. 2. EtOH use disorder, present on admission and active. - [facility] protocol - MVI,folate,thiamine 3. Acute macrocytic anemia, present on admission and active. - unknown baseline. Likely somewhat chronic with EtOH use. Hg has falled from 9.4 to 8.7 this AM. No evidence of GI bleeding reported. Will continue to trend h/h for now. Start on IV PPI BID in case of GI bleeding leading to presentation with dyspnea. Esophageal thickening noted on admission imaging (CT). - continue to follow h/h. 4. hypomagnesemia, , present on admission and improved. - replete today, Mg 1.5 5. Acute cystitis ruled out by culture. 6. Tobacco dependence, present on admission and active. Hospital Course: She was admitted and underwent a diagnostic paracentesis that ruled out SBO. She was started on diuretics and underwent a therapeutic paracentesis for 2.7 L of fluid. She felt much better with improved dyspnea. On the day of discharge she was having no alcohol withdrawal symptoms and was felt to be stable for discharge home. She did request albuterol for her COPD and notes that she was an ongoing smoker. She was going to try to pursue sobriety and has done this in the past. She had a negative urine culture, antibiotics will not be continued at this point. She will be started on both diuretics as well as albuterol and thiamine and folate. She was not placed on antibiotics for SBP prophylaxis with her initial negative ascites, but may become a candidate in the future. Status at Discharge Cognitive/behavioral status at discharge: oriented Functional status at discharge: independent ambulation Overall status at discharge: patient is back to baseline Time Spent with Patient Time spent: Greater than 30 minutes Exam Vital Signs (past 8 hours): - 03/31/24 03:30 03/31/24 04:00 03/31/24 04:00 Pulse Rate 96 H 99 H 104 H Respiratory Rate 20 18 19 Blood Pressure 92/59 L Pulse Oximetry 94 93 94 Oxygen Delivery Method Oxygen Flow Rate 0 03/31/24 04:28 03/31/24 04:28 03/31/24 04:30 Pulse Rate 99 H 97 H Respiratory Rate 20 21 Blood Pressure 92/59 L Pulse Oximetry 93 92 Oxygen Delivery Method Oxygen Flow Rate 03/31/24 05:00 03/31/24 05:30 03/31/24 06:00 Pulse Rate 100 H 98 H 100 H Respiratory Rate 23 23 22 Blood Pressure Pulse Oximetry 88 L 91 92 Oxygen Delivery Method Oxygen Flow Rate 03/31/24 06:16 03/31/24 06:16 03/31/24 06:30 Pulse Rate 111 H 102 H Respiratory Rate Blood Pressure 99/72 Pulse Oximetry 96 93 Oxygen Delivery Method Oxygen Flow Rate 03/31/24 07:00 03/31/24 07:30 03/31/24 08:00 Pulse Rate 102 H 100 H 100 H Respiratory Rate Blood Pressure Pulse Oximetry 93 93 93 Oxygen Delivery Method Oxygen Flow Rate 03/31/24 08:00 03/31/24 08:20 03/31/24 08:20 Pulse Rate 108 H Respiratory Rate Blood Pressure 98/73 Pulse Oximetry 95 Oxygen Delivery Method Room Air Oxygen Flow Rate Fraction of Inspired Oxygen 20 SaO2/FiO2 Ratio 465 Oxygen Delivery Method Room Air Oxygen Flow Rate 0 Narrative Exam Narrative: NAD, alert and oriented. Fluent speech. Lungs are clear, normal rate and effort. Heart is regular, no murmur gallop or rub. Abdomen is soft, mildly distended. Non tender. Extremities are with 1+ edema. Objective Imaging Multiple studies:: Radiologist's impression: Echo: The left ventricle is normal in size and wall thickness. The left ventricle is hyperdynamic. The ejection fraction is estimated to be 70-75%. No significant LV outflow tract obstruction. The right ventricle is normal in size and function There is mild tricuspid regurgitation. Right ventricular systolic pressure is estimated to be 21 mmHg plus the clinically estimated CVP which cannot be estimated on this exam. Head CT: No acute intracranial hemorrhage. No gross loss of ba-white differentiation. Background chronic appearing volume loss and likely microvascular white matter disease. If there is high concern for parenchymal pathology, consider further evaluation with MRI. Moderate fluid in the left maxillary sinus. Abdomen and pelvis CT: FINDINGS: Image quality: Diagnostic Lower chest: Small right pleural effusion. Subjacent atelectasis. Other areas of atelectasis/scarring also present. Mild distal esophageal wall thickening, nonspecific. Coronary calcifications. This appears premature for age. Liver: Hepatic steatosis. Borderline hepatomegaly at 19 cm Subcentimeter lesions are too small to characterize, usually cysts Gallbladder and biliary system: Mildly distended gallbladder without radiopaque gallstones. Borderline ectatic CBD at 6 to 7 mm Pancreas: No ductal dilation Spleen: Nonenlarged Adrenals: No discrete nodule Kidneys: No solid mass or hydronephrosis Vessels and lymph nodes: The main portal vein appears patent. No abdominal aortic aneurysm. There are atherosclerotic calcifications. No pathologic lymph nodes by size criteria Bowel and peritoneum: No evidence of small bowel obstruction. Moderate ascites is present. Colonic diverticula. Nondilated appendix. Body wall: Moderate diffuse anasarca Pelvis: There are pelvic clips. The uterus is absent. Bladder is unremarkable on limited CT evaluation Bones: Mild degenerative changes. No acute or suspicious osseous finding. Nonacute appearing right rib fractures. Age-indeterminate height loss of T12, less than 50%. IMPRESSION: Moderate ascites. Hepatomegaly and steatosis. Steatohepatitis is possible. No obstructing calcified stone or hydronephrosis. Moderate diffuse anasarca. Small right pleural effusion. Other findings above. Chest x-ray: No acute cardiopulmonary abnormality is seen. Labs 03/30/24 08:11 03/30/24 08:11 Labs: Laboratory Results - last 24 hr 03/30/24 03/30/24 08:11 11:00 Triglycerides 86 Cholesterol 128 L LDL Cholesterol, Calc 80 HDL Cholesterol 31 L Vitamin B12 783 Folate 2.9 TSH 4.70 H Fluid Color Yellow Fluid Appearance Slightly cloudy Fluid RBC 158 Fld Tot Nucleated Cell 35 Fluid Neutrophils % 4 Fluid Lymphocytes % 49 Fluid Meso/Macro/Hamlin % 47 Body Fluid Clot No clots present Fluid Glucose 150 Fluid Total Protein 0.7 Fluid Albumin 0.5 Fluid LDH 33 Fluid Amylase 24 PFSH Social History household members: other Smoking Status: Current every day smoker Discharge Assessment & Plan Assessment and Plan Assessment: 1. Cirrhosis vs. alcohol hepatitis and steatohepatitis, with ascites. Present on admission and active. - low DF with normal INR at 1.1 and normal bilirubin - will send ascites fluid for further evaluation (currently cell count with 35 nuclear cells, SBP ruled out). Sent for gram stain, culture, Glucose, Total protein, albumin, amylase, and LDH for diagnostic purposes. - likely ascites is leading to her dyspnea - performed therapeutic paracentesis after SBP ruled out. - start diuretic therapy with furosemide and aldactone after paracentesis. 2. EtOH use disorder, present on admission and active. - [facility] protocol - MVI,folate,thiamine 3. Acute macrocytic anemia, present on admission and active. - unknown baseline. Likely somewhat chronic with EtOH use. Hg has falled from 9.4 to 8.7 this AM. No evidence of GI bleeding reported. Will continue to trend h/h for now. Start on IV PPI BID in case of GI bleeding leading to presentation with dyspnea. Esophageal thickening noted on admission imaging (CT). - continue to follow h/h. 4. hypomagnesemia, , present on admission and improved. - replete today, Mg 1.5 5. Acute cystitis ruled out by culture. 6. Tobacco dependence, present on admission and active. 7. Elevated TSH of 4.5, present on admission and active. Plan of Treatment: Discharge with diuretics, and albuterol MDI. The importance of alcohol cessation is discussed at length and she will follow up with the primary care April 11 as scheduled. She will benefit from repeat laboratories at a TSH at that time. Her urine culture did not support UTI her antibiotics will not be continued. Discharge Plan Discharge Plan Patient Disposition: Home Provider Discharge Comment: Stable for discharge home with close follow up. Discharge orders & Medications Prescriptions: New furosemide 40 mg Tablet 40 mg PO DAILY Qty: 30 1RF folic acid 1 mg Tablet 1 mg PO DAILY Qty: 30 1RF multivitamin with folic acid [Tab-A-Zahida] 400 mcg Tablet 1 tab PO DAILY Qty: 30 1RF spironolactone 25 mg Tablet 50 mg PO DAILY Qty: 30 1RF nicotine 21 mg/24 hr Patch 24 Hour 21 mg topical DAILY PRN (Reason: smoker) Qty: 30 0RF thiamine mononitrate (vit B1) 100 mg Tablet 100 mg PO DAILY Qty: 30 1RF albuterol sulfate 90 mcg/actuation HFA aerosol inhaler 1 inh inhalation QID PRN (Reason: shortness of breath or wheezing) Qty: 8.5 3RF Follow up/Referrals: Doctor Aggarwal MD [Primary Care Provider] - Discharge Health Status Multidrug resistant organism: No MDRO Diet/Activity/Treatments Diet: Regular Activity: As tolerated Skin/Wound/Dressing Care Report to your healthcare provider any signs of infection, such as:: chills, fever, increased pain and unusual drainage Visit Report/Discharge Packet Instructions: DI for Ascites, DI for Cirrhosis Stand Alone Forms: Patient Portal/API Discharge Data Primary Care Provider: Doctor Alessia Attending Provider: Milton Martin Admit Date/Time: 03/30/24 00:14
--- NOTE | 2024-03-31 12:14 | PC.NURSE ---
Pt agreeable to discharge. IV discontinued, telemetry removed. Education provided on alcohol cessation, diet, disease process, followup, and worsening symptoms. Pt verbalized understanding. Pt wheeled via w/c to entrance. Pt requested to sit on bench outside for friend. Pt ambulated independently from w/c to bench.
--- NOTE | 2024-03-31 14:13 | CM.DPC ---
DCP Discharge Home Per MD, pt is medically stable to d/c home today and no identified barriers to discharge. Per RN, pt anxious to discharge home and found a ride and provided discharge instructions and no concerns noted. CATHIE Lino
== END 2024-03-31 12:05 | disposition home or self-care (01) ==
LOC: ED 23:40 → AC 03-30 00:15 → ICU 03-30 00:52
PROVIDERS: Emergency Medicine; Internal Medicine; Admitting Provider Internal Medicine; Emergency Provider Emergency Medicine; Visit Provider Internal Medicine
DX: R18.8 Other ascites (principal); F10.90 Alcohol use, unspecified, uncomplicated; R10.9 Unspecified abdominal pain; R06.02 Shortness of breath; J44.9 Chronic obstructive pulmonary disease, unspecified; E87.6 Hypokalemia; Z72.0 Tobacco use; R42 Dizziness and giddiness; D53.9 Nutritional anemia, unspecified; E83.42 Hypomagnesemia; N30.00 Acute cystitis without hematuria
CPT/HCPCS: 49083; 36415; 70450; 71045; 74177; 80053; 80061; 80320; 81001; 82040; 82150; 82607; 82746; 82945; 83605; 83615; 83735; 83880; 84145; 84157; 84443; 84484; 85025; 85610; 85730; 87070; 87075; 87086; 87205; 87797; 89051; 93005; 93306; 94640; 96365; 96366; 96367; 96368; 96375; 96376; 99284; G0378; J0696; J1170; J1940; J2060; J2470; J3475; J7613; Q9967

== ENCOUNTER → 2024-04-12 08:22 | Outpatient (CLI) | payer OTHER, MEDICAID, SELFPAY ==
[2024-03-30 00:34] VITALS: BMI 20.7
[2024-04-12 09:31] LABS: Add Manual Diff / Slide Review NO; Basophils Absolute Auto 100 /uL (0-100); Eosinophils Absolute Auto 0 /uL (0-450); Eosinophils Percent Auto 0.2 % (2-4); Hematocrit 29.3 % (36-46); Lymphocytes Absolute Auto 1600 /uL (1100-4500); Lymphocytes Percent Auto 19.5 % (25-40); Mean Corpuscular HGB Conc 34.2 % (30-36); Mean Corpuscular Hemoglobin 35.2 PG (26-34); Mean Corpuscular Volume 103.1 fL (80-100); Monocytes Absolute Auto 400 /uL (0-900); Monocytes Percent Auto 4.4 % (3-14); Neutrophils Absolute Auto 6000 /uL (1500-7000); Neutrophils Percent Auto 74.9 % (50-75); Platelet Count 402 X10^3/uL (150-400); Red Blood Cell Count 2.84 X10^6/uL (4.0-5.2); Red Cell Distribution Width 15.8 % (11.6-14.8); White Blood Cell Count 8.1 X10^3/uL (4.5-11.0)
[2024-04-12 09:51] LABS: UR Morphine/Opiate cutoff 300 Negative (Negative); Ur Creatinine Normal (Normal); Ur Specific Gravity Normal (Normal); Urine Amphetamines Negative (Negative); Urine Barbiturates Negative (Negative); Urine Benzodiazepines Negative (Negative); Urine Cocaine Negative (Negative); Urine MDMA Negative (Negative); Urine Methadone Negative (Negative); Urine Methamphetamines Negative (Negative); Urine Oxycodone Negative (Negative); Urine Phencyclidine Negative (Negative); Urine Tetrahydrocannabinol Negative (Negative); Urine Tricyclic Antidepressant Negative (Negative); Urine pH Normal (Normal)
[2024-04-12 10:18] LABS: Alanine Aminotransferase 41 IU/L (<35); Albumin 2.5 g/dL (3.5-5.0); Albumin Globulin Ratio 0.9 (1.0-2.8); Alkaline Phosphatase 257 U/L (38-126); Aspartate Aminotransferase 218 IU/L (14-36); BUN Creatinine Ratio 12.2 (6-22); Bilirubin Total 0.5 mg/dL (0.2-1.3); Blood Urea Nitrogen 6 mg/dL (7-17); Calcium 8.4 mg/dL (8.4-10.2); Carbon Dioxide 26 mmol/L (22-32); Chloride 98 mmol/L (98-107); Estimated Glomerular Filt Rate > 60 mL/min (>60); Globulin 2.8 g/dL (1.7-4.1); Glucose 88 mg/dL (70-100); HEMOLYSIS < 15 (0-50); Magnesium 1.5 mg/dL (1.6-2.3); Potassium 4.2 mmol/L (3.4-5.1); Sodium 131 mmol/L (137-145); Total Protein 5.3 g/dL (6.3-8.2)
[2024-04-12 14:13] LABS: Hemoglobin A1C% w Est Avg Glu < 4.0 % (4.0-6.0)
[2024-04-13 01:36] LABS: HBsAg Screen Negative (Negative); Hepatitis A Antibody IgM Negative (Negative); Hepatitis B Core Antibody IgM Negative (Negative); Hepatitis C Antibody Non Reactive (Non Reactive)
[2024-04-13 07:10] LABS: Alpha Fetoprotein 3.5 ng/mL (0.0-9.2)
== END ==
LOC: LAB 08:24
PROVIDERS: PCP Family Medicine; Referring Provider Family Medicine; Visit Provider Family Medicine
DX: K74.60 Unspecified cirrhosis of liver (principal); Z72.0 Tobacco use; J44.9 Chronic obstructive pulmonary disease, unspecified; R18.8 Other ascites; R60.1 Generalized edema; E83.42 Hypomagnesemia; F10.90 Alcohol use, unspecified, uncomplicated; D64.9 Anemia, unspecified
CPT/HCPCS: 36415; 80053; 80074; 80305; 82105; 83036; 83735; 85025; 85610

== ENCOUNTER 2024-06-26 13:55 | Emergency (ER) | payer OTHER, SELFPAY ==
[2024-03-30 00:34] VITALS: BMI 20.7
[2024-06-26] VITALS (11 sets, daily range): BP systolic 112–214; BP diastolic 58–104; PULSE 76–110; RESP 20–25; TEMP 36.3–37; O2SAT 82–99
[2024-06-26 14:38] LABS: Add Manual Diff / Slide Review NO; Basophils Absolute Auto 100 /uL (0-100); Basophils Percent Auto 1.4 % (0-2); Eosinophils Absolute Auto 0 /uL (0-450); Eosinophils Percent Auto 0.1 % (2-4); Hematocrit 27.3 % (36-46); Hemoglobin 8.5 g/dL (12.0-16.0); INR 1.1 (0.9-1.3); Lymphocytes Absolute Auto 1700 /uL (1100-4500); Mean Corpuscular Hemoglobin 30.8 PG (26-34); Mean Corpuscular Volume 99.2 fL (80-100); Monocytes Absolute Auto 600 /uL (0-900); Monocytes Percent Auto 7.8 % (3-14); Neutrophils Absolute Auto 5800 /uL (1500-7000); Neutrophils Percent Auto 69.7 % (50-75); Platelet Count 400 X10^3/uL (150-400); Red Blood Cell Count 2.75 X10^6/uL (4.0-5.2); Red Cell Distribution Width 17.6 % (11.6-14.8); White Blood Cell Count 8.3 X10^3/uL (4.5-11.0)
[2024-06-26 14:41] LABS: Alanine Aminotransferase 26 IU/L (<35); Albumin 2.9 g/dL (3.5-5.0); Albumin Globulin Ratio 0.9 (1.0-2.8); Alkaline Phosphatase 280 U/L (38-126); Aspartate Aminotransferase 96 IU/L (14-36); Bilirubin Total 0.8 mg/dL (0.2-1.3); Blood Urea Nitrogen 12 mg/dL (7-17); Calcium 8.1 mg/dL (8.4-10.2); Carbon Dioxide 29 mmol/L (22-32); Chloride 102 mmol/L (98-107); Estimated Glomerular Filt Rate > 60 mL/min (>60); Globulin 3.2 g/dL (1.7-4.1); Glucose 114 mg/dL (80-110); HEMOLYSIS < 15 (0-50); PTT Partial Thromboplastin Tim 35 SECONDS (25.1-36.5); Potassium 3.1 mmol/L (3.4-5.1); Sodium 133 mmol/L (137-145); Total Protein 6.1 g/dL (6.3-8.2)
--- NOTE | 2024-06-26 16:33 | DI.US.S_ITS ---
PROCEDURE: US ABDOMEN LIMITED INDICATIONS: Ascites marked please TECHNIQUE: Real-time scanning was performed of the abdominal for site AC, with image documentation. COMPARISON: , CT, CT ABDOMEN PELVIS W CON, 03/29/2024, 21:28. FINDINGS: Large amount of ascites in the lower abdomen. IMPRESSION: Large amount of ascites. Dictated by: Manuel Noonan M.D. on 06/26/2024 at 17:27 Approved by: Mnauel Noonan M.D. on 06/26/2024 at 17:29
--- NOTE | 2024-06-26 17:33 | ED_ITS ---
HPI - Abdominal Pain General Chief Complaint: Abdominal Pain Stated Complaint: Swelling in her stomach. SOB sent from PCP Time Seen by Provider: 06/26/24 16:33 Source: patient Mode of arrival: Ambulatory History of Present Illness HPI narrative: 59-year-old female history of alcoholism smoking presents today with abdominal pain swelling. She reports that it has been getting worse over the last month or so. She has had a paracentesis done for. She was admitted in March with new onset ascites. She has a been seen by GI at the end of April. He thinks that she has had this drained in April or May. She has no significant pain chest pain shortness of breath or fever. She just reports significant abdominal swelling. She reports that she has been sober for 1 month Related Data Previous Rx's Medication Instructions Recorded folic acid 1 mg tablet 1 mg PO DAILY #30 tabs 03/31/24 multivitamin with folic acid 400 1 tab PO DAILY #30 tabs 03/31/24 mcg tablet (Tab-A-Zahida) nicotine 21 mg/24 hr daily 21 mg topical DAILY PRN smoker #30 03/31/24 transdermal patch ea magnesium oxide 400 mg PO DAILY #3 tabs 04/13/24 albuterol sulfate 90 mcg/actuation 1 inh inhalation QID PRN shortness 05/26/24 aerosol inhaler of breath or wheezing #8.5 grams carvedilol 3.125 mg tablet 3.125 mg PO BID #180 tabs 05/26/24 furosemide 40 mg tablet 40 mg PO DAILY #90 tabs 05/26/24 potassium chloride 20 mEq 20 meq PO DAILY #90 tabs 05/26/24 tablet,extended release(part/cryst) spironolactone 25 mg tablet 50 mg (2 x 25 mg) PO DAILY #180 05/26/24 tabs Allergies Allergy/AdvReac Type Severity Reaction Status Date / Time No Known Drug Allergies Allergy Verified 06/26/24 14:13 Patient History Medical History Acute hypokalemia Social History household members: other Smoking Status: Current every day smoker Smoking Status: Current every day smoker alcohol intake frequency: 3 or more drinks per day Exam Initial Vital Signs Initial Vital Signs: Vital Signs Temperature 97.3 F L 06/26/24 14:13 Pulse Rate 93 H 06/26/24 14:13 Respiratory Rate 20 06/26/24 14:13 Blood Pressure 112/62 06/26/24 14:13 Pulse Oximetry 98 06/26/24 14:13 Oxygen Delivery Method Room Air 06/26/24 14:13 GENERAL: Alert chronically ill 59-year-old female and in no acute distress. HEENT: Head atraumatic,EOMI, pupils reactive, face symmetric, moist mucous membranes CARDIOVASCULAR: Regular rate and rhythm without murmurs, rubs or gallops. RESPIRATORY: Breath sounds equal bilaterally, no wheezes rales or rhonchi. ABDOMEN: Soft, positive fluid waves distention no significant EXTREMITIES: Normal range of motion, no clubbing or edema. Neurovascularly intact NEUROLOGICAL: Alert and oriented x4.Normal gait and speech. SKIN: Warm, dry, no laceration, no petechiae, no rashes or lesions. Procedures Laceration Repair Laceration 1: Site: other (abdomen) Side (If applicable): right Size (cm): 0.01 Description: other (pin point) Skin layer closed with: nylon Skin layer suture size: 4-0 Number of sutures: 1 Technique: simple, interrupted Paracentesis Time of procedure: 17:50 Time Out Performed: Yes Indication: Ascites Procedure: therapeutic paracentesis Local Anesthetic: lidocaine 1% Amount of anesthesia used (mL): 4 Preparation: sterile prep and drape and Blade used to make mireya in skin (18g used) Fluid: clear Post Procedure Exam: awake, alert, normal BP, normal HR and normal SpO2 Patient Tolerated Procedure: Well and No complications Complications: none Course Orders Ordered: ED Orders 06/26/24 14:22 CBC Auto Diff [Complete Blood Count AUTO DIFF] Stat Comprehensive Metabolic Panel Stat PTT Partial Thromboplastin Luis Stat Prothrombin Time INR Stat 06/26/24 16:33 US abdomen limited Stat Vital Signs Vital signs: Vital Signs - 8 hr 06/26/24 14:13 06/26/24 16:49 06/26/24 17:00 Temperature 97.3 F L Pulse Rate 93 H 97 H 95 H Respiratory Rate 20 20 21 Blood Pressure 112/62 Pulse Oximetry 98 96 95 Oxygen Delivery Method Room Air 06/26/24 17:00 06/26/24 17:29 06/26/24 17:30 Temperature Pulse Rate 76 110 H Respiratory Rate 20 23 Blood Pressure 118/77 214/104 H Pulse Oximetry 99 98 Oxygen Delivery Method Room Air 06/26/24 17:30 06/26/24 18:00 06/26/24 18:00 Temperature Pulse Rate 97 H Respiratory Rate 21 Blood Pressure 116/58 L 114/75 Pulse Oximetry 94 Oxygen Delivery Method 06/26/24 18:01 06/26/24 18:01 06/26/24 18:24 Temperature Pulse Rate 98 H Respiratory Rate 23 Blood Pressure 119/70 116/85 Pulse Oximetry 96 Oxygen Delivery Method 06/26/24 18:24 06/26/24 18:30 06/26/24 18:30 Temperature Pulse Rate 97 H 107 H Respiratory Rate 25 H 24 Blood Pressure 113/83 Pulse Oximetry 93 82 L Oxygen Delivery Method 06/26/24 18:34 06/26/24 18:34 06/26/24 19:14 Temperature 98.6 F Pulse Rate 98 H 108 H Respiratory Rate 21 21 Blood Pressure 114/63 114/74 Pulse Oximetry 93 97 Oxygen Delivery Method Room Air MDM - Abdominal Pain Lab Data 06/26/24 14:22 06/26/24 14:22 Labs: Lab Results 06/26/24 Range/Units 14:22 WBC 8.3 (4.5-11.0) X10^3/uL RBC 2.75 L (4.0-5.2) X10^6/uL Hgb 8.5 L (12.0-16.0) g/dL Hct 27.3 L (36-46) % MCV 99.2 (80-100) fL MCH 30.8 (26-34) PG MCHC 31.0 (30-36) % RDW 17.6 H (11.6-14.8) % Plt Count 400 (150-400) X10^3/uL Neut % (Auto) 69.7 (50-75) % Lymph % (Auto) 21.0 L (25-40) % [place] % (Auto) 7.8 (3-14) % Eos % (Auto) 0.1 L (2-4) % Baso % (Auto) 1.4 (0-2) % Neut # (Auto) 5800 (4158-3331) /uL Lymph # (Auto) 1700 (1211-4115) /uL [place] # (Auto) 600 (0-900) /uL Eos # (Auto) 0 (0-450) /uL Baso # (Auto) 100 (0-100) /uL PT 13.0 H (9.4-12.5) SECONDS INR 1.1 (0.9-1.3) APTT 35 (25.1-36.5) SECONDS Sodium 133 L (137-145) mmol/L Potassium 3.1 L (3.4-5.1) mmol/L Chloride 102 (98-107) mmol/L Carbon Dioxide 29 (22-32) mmol/L BUN 12 (7-17) mg/dL Creatinine 0.75 (0.52-1.04) mg/dL Estimated GFR > 60 (>60) mL/min BUN/Creatinine Ratio 16.0 (6-22) Glucose 114 H (80-110) mg/dL Calcium 8.1 L (8.4-10.2) mg/dL Total Bilirubin 0.8 (0.2-1.3) mg/dL AST 96 H (14-36) IU/L ALT 26 (<35) IU/L Alkaline Phosphatase 280 H (38-126) U/L Total Protein 6.1 L (6.3-8.2) g/dL Albumin 2.9 L (3.5-5.0) g/dL Globulin 3.2 (1.7-4.1) g/dL Albumin/Globulin Ratio 0.9 L (1.0-2.8) Imaging Data US - abdomen: Radiologist's Impression: PROCEDURE: US ABDOMEN LIMITED INDICATIONS: Ascites marked please TECHNIQUE: Real-time scanning was performed of the abdominal for site AC, with image documentation. COMPARISON: [facility], CT, CT ABDOMEN PELVIS W CON, 03/29/2024, 21:28. FINDINGS: Large amount of ascites in the lower abdomen. IMPRESSION: Large amount of ascites. Dictated by: Manuel Noonan M.D. on 06/26/2024 at 17:27 MDM Narrative Medical decision making narrative: MDM CC: Abdominal distention Complicating co-morbidities: Cirrhosis alcoholism Medical records reviewed: Previous admitted Differential considered: Cirrhosis, ascites SBP Exam documented above, pertinent findings include: 59-year-old female appears chronically ill abdomen is quite distended positive fluid wave no significant pain Lab Test results independently reviewed as above. Pertinent findings: WBC 8.5 hematocrit 27.3 platelets 400, prior hemoglobin 10/29.3, however before that it was 8.7/26 point 29.3 INR 1.1 PTT 35 Sodium 133 potassium 3.1 chloride 0 2 carbon dioxide 29 BUN 12 creatinine 0.7 Bilirubin 0.8 AST 96 ALT 26 alk-phos 280 these are similar to prior or actually improved Imaging studies independently reviewed: Ultrasound large amount of the site Consultations: No Treatments: Paracentesis Re-evaluations: Patient had 5 L paracentesis removed. Blood pressure remained stable. 1 stitch was placed for persistent leakage. Abdomen is soft Discussion: 59-year-old female with known cirrhosis and ascites presents today with increased abdominal pain and swelling. No fever. 5 L were removed with paracentesis without complication. She is anemic which does seem to be about stable for her. There is a drop from most recent but she has not lower than what she has been in the past. At this time recommend outpatient follow up. She has been seen by GI. Discharge Plan Departure Patient Disposition: Home Clinical Impression: Abdominal ascites, Anemia, Acute hypokalemia Instructions: Ascites Activity Restrictions/Additional Instructions: *You have been diagnosed with ascites *What to do: At this time have your sutures removed in about 5-7 days. Hopefully does not cause too much leakage for you. Please talk with your PCP or your GI in regards to scheduled paracentesis Your potassium is slightly low as well please have that rechecked *Continue to take medications as directed *Follow up with your primary care provider in 2-3 days or call [phone] *Return to ER if you should have increasing weakness abdominal pain swelling [or] any new, worsening or concerning symptoms Prescriptions: No Action magnesium oxide 400 mg magnesium tablet 400 mg PO DAILY Qty: 3 0RF albuterol sulfate 90 mcg/actuation HFA aerosol inhaler 1 inh inhalation QID PRN (Reason: shortness of breath or wheezing) Qty: 8.5 3RF carvedilol 3.125 mg tablet 3.125 mg PO BID Qty: 180 3RF Rx Instructions: must administer with a meal/food furosemide 40 mg tablet 40 mg PO DAILY Qty: 90 3RF potassium chloride 20 mEq tablet,ER particles/crystals 20 meq PO DAILY Qty: 90 3RF spironolactone 25 mg tablet 50 mg PO DAILY Qty: 180 3RF folic acid 1 mg Tablet 1 mg PO DAILY Qty: 30 1RF multivitamin with folic acid [Tab-A-Zahida] 400 mcg Tablet 1 tab PO DAILY Qty: 30 1RF nicotine 21 mg/24 hr Patch 24 Hour 21 mg topical DAILY PRN (Reason: smoker) Qty: 30 0RF Referrals: Tatum Hutchins DO [Primary Care Provider] - Stand Alone Forms: Patient Portal/API/Survey
== END 2024-06-26 19:17 | disposition home or self-care (01) ==
PROVIDERS: Emergency Provider Emergency Medicine; PCP Family Medicine
DX: R18.8 Other ascites (principal); D64.9 Anemia, unspecified; E87.6 Hypokalemia
CPT/HCPCS: 36415; 49082; 76705; 80053; 85025; 85610; 85730; 99284